=== PATIENT | female | born 1975 | race Caucasian/White ===

== ENCOUNTER 2020-03-18 14:49 | Emergency (ER) | payer OTHER ==
--- OUTSIDE RECORDS SUMMARY | 2020-03-18 14:51 | XMS REPORT | Continuity of Care Document ---
:1975 Author Organization [facility] t Address [address] [place] [address] Care Team Providers Name Role Phone Sarah Barrios MD Attending Clinician Yusuf WOODRUFF Attending Clinician Doctor Unassigned, Name Attending Clinician Unavailable Problems This patient has no known problems. Allergies, Adverse Reactions, Alerts This patient has no known allergies or adverse reactions. Medications This patient has no known medications. Procedures This patient has no known procedures. Encounters Start End Encounter Admission Attending Care Care Encounter Source Date/Time Date/Time Type Type Clinicians Facility Department ID 2019-09-19 2019-09-19 Emergency Sophie [facility] [id number] 19:21:40 22:17:00 [place] [id number] [place] [id number] [place] [id number] 2019-03-14 2019-03-14 Telephone Yusuf [facility] [id number] 00:00:00 00:00:00 [facility] [id number] Surgical [id number] [place] [id number] es [address] [place] 2019-03-13 2019-03-13 Urgent [facility] [id number] 21:26:15 21:58:55 Care [facility] [id number] Surgical [id number] [place] [id number] es 370 [place] 2019-03-13 2019-03-13 Orders Doctor GREY [id number] 00:00:00 00:00:00 Only Unassigned, [place] [id number] [place] [facility] [id number] Results This patient has no known results.
[2020-03-18] MEDS ORDERED: LORazepam 2 MG/ML VIAL ONE (15:37)
[2020-03-18 15:39] LABS: Basophils % 0.4 % (0-1.3); Hematocrit 42.2 % (36.0-45.0); Lymphocytes % 41.6 % (15.3-44.8); MPV 6.6 fL (7.6-11.3); RBC Red Blood Cell Count 4.86 M/uL (3.86-4.86)
[2020-03-18 15:40] LABS: Protime INR 0.84
--- NOTE | 2020-03-18 15:50 | RAD REPORT ---
EXAM DESCRIPTION: RAD - Chest Single View - 03/18/2020 3:24 pm CLINICAL HISTORY: CHEST PAIN COMPARISON: None TECHNIQUE: AP portable chest image was obtained 03/18/2020 3:24 pm . FINDINGS: No focal mass or consolidation. Interstitial pattern is prominent but likely baseline. Ret rocardiac left base assessment is limited. Heart and vasculature are normal. No measurable pleural ef fusion and no pneumothorax. No acute bony abnormality seen. No acute aortic findings suspected. IMPRESSION: No acute cardiopulmonary process. Interstitial pattern is prominent believed to be baseline.
[2020-03-18 15:51] LABS: ALT/SGPT 31 U/L (12-78); AST/SGOT 21 U/L (15-37); Albumin 3.9 g/dL (3.4-5.0); Alkaline Phosphatase 141 U/L (45-117); BUN Blood Urea Nitrogen 10 mg/dL (7-18); Bicarbonate 24 mmol/L (21-32); Bilirubin Direct < 0.1 mg/dL (0-0.2); Bilirubin Total 0.2 mg/dL (0.2-1.0); Glucose Level 103 mg/dL (74-106); NT PRO-BNP 121 pg/mL (<125); Potassium 3.1 mmol/L (3.5-5.1); Protein, Total 7.9 g/dL (6.4-8.2); Sodium Level 138 mmol/L (136-145); Troponin (Emerg Dept Use Only) < 0.02 ng/mL (0.0-0.045)
--- NOTE | 2020-03-18 16:05 | EDPHYS ---
Physician Documentation [facility] Name: Kushal Tinsley Age: 45 yrs Sex: Female : 1975 Arrival Date: 03/18/2020 Time: 14:49 Bed 4 Private MD: ED Physician Vin Joe HPI: 03/18 15:38 This 45 yrs old Female presents to ER via EMS with complaints of jr8 Anxiety/Chest pain. 15:38 The patient or guardian reports chest pain that is located primarily in the substernal jr8 area. Onset: acutely, today. The pain does not radiate. Associated signs and symptoms: Pertinent positives: shortness of breath. The chest pain is described as a heaviness. Duration: The patient or guardian reports a single episode, that is still ongoing. Modifying factors: The symptoms are alleviated by nothing. the symptoms are aggravated by emotionally stressful situations. Severity of pain: At its worst the pain was moderate in the emergency department the pain is unchanged. The patient has experienced similar episodes in the past, a few times. The patient has not recently seen a physician. Patient brought in by EMS after being arrested by [employer]. Stated that she started to have chest pain. Patient anxious and short of breath upon arrival. Stated that she has intermittent pain from time to time. Is suppose to have appointment with a physician this for the pain . Historical: - Allergies: 14:52 Bactrim; bp - Home Meds: 14:52 None [Active]; bp - PMHx: 14:52 Hypertension; bp - Immunization history:: Adult Immunizations unknown. - Social history:: Smoking status: unknown. ROS: 15:38 Eyes: Negative for injury, pain, redness, and discharge, ENT: Negative for injury, jr8 pain, and discharge, Neck: Negative for injury, pain, and swelling, Abdomen/GI: Negative for abdominal pain, nausea, vomiting, diarrhea, and constipation, Back: Negative for injury and pain, MS/Extremity: Negative for injury and deformity, Skin: Negative for injury, rash, and discoloration, Neuro: Negative for headache, weakness, numbness, tingling, and seizure. 15:38 Cardiovascular: Positive for chest pain, Negative for edema, orthopnea, palpitations, paroxysmal nocturnal dyspnea. 15:38 Respiratory: Positive for shortness of breath. Exam: 15:38 Eyes: Pupils equal round and reactive to light, extra-ocular motions intact. Lids and jr8 lashes normal. Conjunctiva and sclera are non-icteric and not injected. Cornea within normal limits. Periorbital areas with no swelling, redness, or edema. ENT: Nares patent. No nasal discharge, no septal abnormalities noted. Tympanic membranes are normal and external auditory canals are clear. Oropharynx with no redness, swelling, or masses, exudates, or evidence of obstruction, uvula midline. Mucous membranes moist. Neck: Trachea midline, no thyromegaly or masses palpated, and no cervical lymphadenopathy. Supple, full range of motion without nuchal rigidity, or vertebral point tenderness. No Meningismus. Abdomen/GI: Soft, non-tender, with normal bowel sounds. No distension or tympany. No guarding or rebound. No evidence of tenderness throughout. Back: No spinal tenderness. No costovertebral tenderness. Full range of motion. Skin: Warm, dry with normal turgor. Normal color with no rashes, no lesions, and no evidence of cellulitis. MS/ Extremity: Pulses equal, no cyanosis. Neurovascular intact. Full, normal range of motion. Neuro: Awake and alert, GCS 15, oriented to person, place, time, and situation. Cranial nerves II-XII grossly intact. Motor strength 5/5 in all extremities. Sensory grossly intact. Cerebellar exam normal. Normal gait. 15:38 Cardiovascular: Rate: tachycardic, Rhythm: regular, Pulses: Pulses are 2+ in right radial artery and left radial artery. Heart sounds: normal, normal S1and S2, no S3 or S4, no murmur, no rub, no gallop, Edema: is not appreciated. 15:38 Respiratory: the patient does not display signs of respiratory distress, Respirations: tachypnea, that is mild. 15:38 Psych: Behavior/mood is anxious. 15:38 ECG was reviewed by the Attending Physician. jr8 Vital Signs: 14:50 BP 120 / 81; Pulse 120; Resp 17; Temp 98; Pulse Ox 98% ; bp 14:54 BP 138 / 78; Pulse 121; Resp 24; Pulse Ox 100% ; bp 16:21 BP 123 / 80; Pulse 87; Resp 16; Pulse Ox 98% ; bp MDM: 14:50 Patient medically screened. jr8 16:02 The patient was not given aspirin in the Emergency Department. Aspirin not given, jr8 patient refused. Data reviewed: vital signs, nurses notes, lab test result(s), EKG, radiologic studies, plain films. Data interpreted: Pulse oximetry: on room air is 100 %. Interpretation: normal. Counseling: I had a detailed discussion with the patient and/or guardian regarding: the historical points, exam findings, and any diagnostic results supporting the discharge/admit diagnosis, lab results, radiology results, the need for outpatient follow up, a manager of financial planning, a family practitioner, to return to the emergency department if symptoms worsen or persist or if there are any questions or concerns that arise at home. Response to treatment: the patient's symptoms have resolved after treatment. 16:04 ED course: Patient would not urinate or take the aspirin. Barely could get her to let jr us get blood work to further evaluate her. VS stable at this point. Pain free and feeling better after ativan. Will d/c to Police . 03/18 14:57 Order name: Basic Metabolic Panel; Complete Time: 16:03/18 14:57 Order name: CBC with Diff; Complete Time: 16:03/18 14:57 Order name: LFT's; Complete Time: 16:03/18 14:57 Order name: Magnesium; Complete Time: 16:03/18 14:57 Order name: NT PRO-BNP; Complete Time: 16:03/18 14:57 Order name: PT-INR; Complete Time: 16: [facility] 03/18 14:57 Order name: Troponin (emerg Dept Use Only); Complete Time: 16: 03/18 14:57 Order name: XRAY Chest (1 view); Complete Time: 16:01 03/18 14:57 Order name: EKG; Complete Time: 14:58 03/18 14:57 Order name: Cardiac monitoring; Complete Time: 15:27 03/18 14:57 Order name: EKG - Nurse/Tech; Complete Time: 15:36 03/18 14:57 Order name: IV Saline Lock; Complete Time: 15:03 03/18 14:57 Order name: Labs collected and sent; Complete Time: 15:27 03/18 14:57 Order name: O2 Per Protocol; Complete Time: 15:03 jr8 03/18 14:57 Order name: O2 Sat Monitoring; Complete Time: 15:03 8 EC:38 Rate is 84 beats/min. Rhythm is regular, Normal Sinus Rhythm. QRS [place] is Normal. [place] jr8 interval is normal at 132 msec. QRS interval is normal at 60 msec. QT interval is normal at 406 msec. No Q waves. T waves are Normal. No ST changes noted. Clinical impression: Normal ECG and No evidence of ischemia. Interpreted by me. Reviewed by me. Administered Medications: 15:10 Drug: Ativan 1 mg Route: IVP; Site: left hand; bp 16:05 Follow up: Response: Anxiety decreased bp 15:29 Not Given (Patient Refused): Aspirin Chewable Tablet 324 mg PO once; 81 mg tablets x 4 bp 16:21 Not Given (Patient Refused): Potassium Chloride 40 mEq PO once bp Disposition: 17:47 Co-signature as Attending Physician, Vin Joe MD. rn Disposition: 03/18/20 16:04 Discharged to Law Enforcement. Impression: Chest pain, unspecified, Panic disorder [episodic paroxysmal anxiety] without agoraphobia. - Condition is Stable. - Discharge Instructions: Panic Attacks, Nonspecific Chest Pain. - Medication Reconciliation Form, Thank You Letter, Antibiotic Education, Prescription Opioid Use form. - Follow up: Private Physician; When: 2 - 3 days; Reason: Recheck today's complaints, Continuance of care, Re-evaluation by your physician. Follow up: Adelfo Gomez MD; When: 48 Hours; Reason: Recheck today's complaints, Continuance of care, Re-evaluation by your physician. - Problem is new. - Symptoms have improved. Signatures: Dispatcher [employer] EDMS Vin Joe MD MD rn Roszak, Josh, PA PA jr8 Don Abel RN RN bp Corrections: (The following items were deleted from the chart) 16:05 16:04 03/18/2020 16:04 Discharged to Home. Impression: Chest pain, unspecified; Panic jr8 disorder [episodic paroxysmal anxiety] without agoraphobia. Condition is Stable. Forms are Medication Reconciliation Form, Thank You Letter, Antibiotic Education, Prescription Opioid Use. Follow up: Private Physician; When: 2 - 3 days; Reason: Recheck today's complaints, Continuance of care, Re-evaluation by your physician. Follow up: Adelfo Gomez; When: 48 Hours; Reason: Recheck today's complaints, Continuance of care, Re-evaluation by your physician. Problem is new. Symptoms have improved. jr8 16:23 16:05 03/18/2020 16:04 Discharged to Law Enforcement. Impression: Chest pain, bp unspecified; Panic disorder [episodic paroxysmal anxiety] without agoraphobia. Condition is Stable. Discharge Instructions: Panic Attacks, Nonspecific Chest Pain. Forms are Medication Reconciliation Form, Thank You Letter, Antibiotic Education, Prescription Opioid Use. Follow up: Private Physician; When: 2 - 3 days; Reason: Recheck today's complaints, Continuance of care, Re-evaluation by your physician. Follow up: Adelfo Gomez; When: 48 Hours; Reason: Recheck today's complaints, Continuance of care, Re-evaluation by your physician. Problem is new. Symptoms have improved. jr8
--- NOTE | 2020-03-18 16:05 | ER ---
Nurse's Notes [facility] Name: Kushal Tinsley Age: 45 yrs Sex: Female : 1975 Arrival Date: 03/18/2020 Time: 14:49 Bed 4 Private MD: Diagnosis: Chest pain, unspecified;Panic disorder [episodic paroxysmal anxiety] without agoraphobia Presentation: 03/18 14:50 Chief complaint: EMS states: ANXIETY AND HYPERVENTILATION AFTER BEING ARRESTED FOR bp SHOPLIFTING. Coronavirus screen: At this time, the client does not indicate any symptoms associated with coronavirus-19. Ebola Screen: No symptoms or risks identified at this time. Initial Sepsis Screen: Does the patient meet any 2 criteria? HR > 90 bpm. No. Patient's initial sepsis screen is negative. Does the patient have a suspected source of infection? No. Patient's initial sepsis screen is negative. Risk Assessment: Do you want to hurt yourself or someone else? Patient reports no desire to harm self or others. Onset of symptoms is unknown. 14:50 Method Of Arrival: EMS: [facility] bp 14:50 Acuity: KOFI 3 bp Triage Assessment: 14:52 General: Appears distressed, uncomfortable, obese, Behavior is cooperative, appropriate bp for age, agitated, anxious, crying. Pain: Denies pain. EENT: No deficits noted. Neuro: Level of Consciousness is awake, alert, obeys commands, Oriented to person, place, time, situation, Appropriate for age. Cardiovascular: No deficits noted. Respiratory: Airway is patent Respiratory effort is even, unlabored, Respiratory pattern is hyperventilation. GI: No signs and/or symptoms were reported involving the gastrointestinal system. : No signs and/or symptoms were reported regarding the genitourinary system. Derm: No deficits noted. Musculoskeletal: No deficits noted. Historical: - Allergies: 14:52 Bactrim; bp - Home Meds: 14:52 None [Active]; bp - PMHx: 14:52 Hypertension; bp - Immunization history:: Adult Immunizations unknown. - Social history:: Smoking status: unknown. Screenin:56 Abuse screen: Denies threats or abuse. Denies injuries from another. Nutritional bp screening: No deficits noted. Tuberculosis screening: No symptoms or risk factors identified. Fall Risk None identified. Assessment: 14:54 General: SEE TRIAGE NOTE. PT REMAINS IN CUSTODY. bp 15:18 Reassessment: PT REFUSING LABWORK, REORIENTED BY LMP. bp 16:21 Reassessment: PT D/C TO PD CUSTODY, DX WITH ANXIETY REACTION AND NONSPECIFIC CP. bp Vital Signs: 14:50 BP 120 / 81; Pulse 120; Resp 17; Temp 98; Pulse Ox 98% ; bp 14:54 BP 138 / 78; Pulse 121; Resp 24; Pulse Ox 100% ; bp 16:21 BP 123 / 80; Pulse 87; Resp 16; Pulse Ox 98% ; bp ED Course: 14:49 Patient arrived in ED. bp 14:50 George Laura PA is PHCP. jr8 14:50 Vin Joe MD is Attending Physician. jr8 14:52 Triage completed. bp 14:52 Arm band placed on. bp 14:56 Patient has correct armband on for positive identification. Bed in low position. Call bp light in reach. Side rails up X2. 14:57 Don Abel, PREMA is Primary Nurse. bp 15:00 Maintain EMS IV. Dressing intact. Good blood return noted. Site clean \T\ dry. Gauge \T\ bp site: 20 GAUGE LEFT HAND. 15:24 XRAY Chest (1 view) In Process Unspecified. EDMS 15:33 EKG done, by ED staff, reviewed by George FISHER. 3 16:04 Adelfo Gomez MD is Referral Physician. jr8 16:21 No provider procedures requiring assistance completed. IV discontinued, intact, bp bleeding controlled, No redness/swelling at site. Pressure dressing applied. Administered Medications: 15:10 Drug: Ativan 1 mg Route: IVP; Site: left hand; bp 16:05 Follow up: Response: Anxiety decreased bp 15:29 Not Given (Patient Refused): Aspirin Chewable Tablet 324 mg PO once; 81 mg tablets x 4 bp 16:21 Not Given (Patient Refused): Potassium Chloride 40 mEq PO once bp Outcome: 16:04 Discharge ordered by . jr8 16:21 Discharged to Law Enforcement bp 16:21 Condition: stable 16:21 Discharge instructions given to patient, police, Instructed on discharge instructions, follow up and referral plans. Demonstrated understanding of instructions, follow-up care. 16:23 Patient left the ED. bp Signatures: Dispatcher [employer] George Rodriguez PA PA jr8 Ansley Najera 3 Don Abel, RN RN bp
[2020-03-18] MEDS ORDERED: POTASSIUM 25 MEQ EFFERV TAB ONE (16:23)
[2020-03-18 16:28] VITALS: TEMP 98
[2020-03-18 16:30] VITALS: BP 123/80; O2SAT 98
--- NOTE | 2020-03-19 12:18 | EKG ---
Test Date: 2020-03-18 Test Time: 15:32:39 Class A Lineman: TAVO MEASUREMENT RESULTS: Intervals: Rate: 84 IN: 132 QRSD: 90 QT: 406 QTc: 479 [place]: P: 69 IN: 132 QRS: 65 T: 46 INTERPRETIVE STATEMENTS: Normal sinus rhythm ST abnormality, possible digitalis effect Abnormal ECG No previous ECG available for comparison Electronically Signed On 03-19-20 12:15:10 CDT by Adelfo Gomez
== END 2020-03-18 16:23 ==
LOC: ER 14:49
DX: F41.0 Panic disorder [episodic paroxysmal anxiety] (principal); R07.9 Chest pain, unspecified; Z88.1 Allergy status to other antibiotic agents
CPT/HCPCS: 36415; 71045; 80048; 80076; 83735; 83880; 84484; 85025; 85610; 93005; 96374; 99284